=== PATIENT | female | born 1955 | race Caucasian/White ===

== ENCOUNTER 2016-05-12 11:44 | Emergency (ER) | payer OTHER ==
[~2016-05-12] VITALS: Ht 167.6 cm; Wt 93.7 kg
[~2016-05-12 11:44] MED LIST: ALPRAZOLAM0.25 MG PO; ASPIR 8181 MG PO; BENICAR20 MG PO; CLARITIN,ALAVAR10 MG PO; COUMADIN5 MG PO; Coumadin Daily Dose PO; Ecotrin PO; FLEXERIL10 MG PO; HYDROCHLOROTH12.5 M3 PO; LOPRESSOR100 M1 PO; LORTAB 5-325 M1 EACH PO; Lopressor PO; Lovenox SC; MAXALT10 MG PO; MECLIZINE HCL12.5 M1 PO; NORVASC5 MG PO; Norvasc PO; PACERONE200 M1 PO; PREDNISONE50 MG PO; Pradaxa PO; Robitussin DM PO; TRAMADOL HCL50 MG PO; Vitamin D, Drisdol PO; XANAX0.25 MG PO; Xanax PO
[2016-05-12] MEDS ORDERED: PREDNISONE10 MG PO (14:18)
[2016-05-12] MEDS ORDERED: FLEXERIL10 MG PO (14:18)
[2016-05-12] MEDS ORDERED: LORTAB 5-325 M1 EACH PO (14:18)
[2016-05-12 14:37] VITALS: BP 135/95
== END 2016-05-12 14:39 | disposition home or self-care (01) ==
LOC: EME 11:44
DX: M54.41 Lumbago with sciatica, right side (principal); M62.830 Muscle spasm of back; S76.011A Strain of muscle, fascia and tendon of right hip, initial encounter; X50.9XXA Other and unspecified overexertion or strenuous movements or postures, initial encounter; Y92.009 Unspecified place in unspecified non-institutional (private) residence as the place of occurrence of the external cause; I10 Essential (primary) hypertension; I48.91 Unspecified atrial fibrillation; Z79.01 Long term (current) use of anticoagulants
CPT/HCPCS: 99281; 99284; J7512

== ENCOUNTER → 2017-04-05 | Outpatient (CLI) | payer OTHER ==
[~2017-04-05] MED LIST changes: +PREDNISONE10 MG PO
== END | disposition home or self-care (01) ==
LOC: EKG 12:29
DX: I05.0 Rheumatic mitral stenosis (principal); I05.1 Rheumatic mitral insufficiency; I07.1 Rheumatic tricuspid insufficiency; I06.1 Rheumatic aortic insufficiency; I27.20 Pulmonary hypertension, unspecified
CPT/HCPCS: 93306